=== PATIENT | male | born 1980 | race Caucasian/White ===

== ENCOUNTER 2019-02-12 15:43 | Emergency (ER) | payer SELFPAY ==
[~2019-02-12] VITALS: Ht 175.3 cm; Wt 75.0 kg
[2019-02-12] MEDS ORDERED: ONDANSETRON HCL 4MG/2ML INJ IV STA (16:46)
[2019-02-12 20:30] VITALS: BP 118/77
[2019-02-12 20:30] LABS: CLARITY URINE CLEAR (CLEAR); COLOR URINE YELLOW (YELLOW); KETONES URINE NEGATIVE (NEGATIVE); LEUKOCYTE ESTERASE URINE NEGATIVE (NEGATIVE); NITRITE URINE NEGATIVE (NEGATIVE); OCCULT BLOOD URINE NEGATIVE (NEGATIVE); PROTEIN URINE NEGATIVE (NEGATIVE); SPECIFIC GRAVITY URINE 1.003 (1.005-1.030); UROBILINOGEN URINE 0.2 E.U./dL (0.2-1.0)
== END 2019-02-12 21:42 | disposition home or self-care (01) ==
LOC: ER 16:14 → CANBEDREQ 19:05 → ER 21:42
DX: F10.129 Alcohol abuse with intoxication, unspecified (principal); V43.52XA Car driver injured in collision with other type car in traffic accident, initial encounter; Y93.89 Activity, other specified; Y92.89 Other specified places as the place of occurrence of the external cause; Y99.8 Other external cause status; Y90.8 Blood alcohol level of 240 mg/100 ml or more
CPT/HCPCS: 36415; 80320; 99283; G0480

== ENCOUNTER 2021-06-30 15:13 | Emergency (ER) | payer MEDICAID ==
[~2021-06-30] VITALS: Ht 170.2 cm; Wt 83.0 kg
[2021-06-30 15:23] VITALS: BP 131/88
[2021-06-30] MEDS ORDERED: KETOROLAC 60MG/2ML VIAL IM ONE (18:45)
[2021-06-30] MEDS ORDERED: HYDR-4001 MT (21:28)
[2021-06-30] MEDS ORDERED: ACET-2708 MT (21:30)
== END 2021-06-30 22:41 | disposition home or self-care (01) ==
LOC: ER 15:13
DX: S62.502A Fracture of unspecified phalanx of left thumb, initial encounter for closed fracture (principal); X58.XXXA Exposure to other specified factors, initial encounter; Y93.89 Activity, other specified; Y92.89 Other specified places as the place of occurrence of the external cause; Y99.8 Other external cause status
CPT/HCPCS: 73130; 96372; 99283; J1885